=== PATIENT | male | born 1965 | race Caucasian/White ===

== ENCOUNTER 2022-04-29 13:35 | Emergency (ER) | payer OTHER, SELFPAY ==
--- NOTE | ~2022-04-29 | CT_ITS ---
EXAMINATION: CT abdomen pelvis wo con DATE: 04/29/2022 16:14 INDICATION: left flank pain TECHNIQUE: Computed tomography (CT) of the abdomen and pelvis was performed without intravenous contr ast. Automated exposure control and iterative reconstruction technique were employed. The dose-length product was 892.61 mGy-cm. COMPARISON: None. FINDINGS: Lower thorax: Minimal dependent atelectasis. Liver: Normal. Biliary/Gallbladder: Cholelithiasis. No bile duct dilation. Pancreas: No mass or duct dilation. Spleen: Normal. Adrenals:Right adrenal adenoma. Kidneys: Bilateral gynecomastia. Lower lobe 5 mm nonobstructing calculi. Bilateral simple cysts. No h ydronephrosis GI tract: No small or large bowel dilation. Normal appendix. Diverticulosis without diverticulitis. Mesentery/Peritoneum: No ascites, mass, or free air. Retroperitoneum: No mass. Atherosclerotic abdominal aortic and/or arterial calcifications. Pelvis: Pelvic organs are within normal limits. Soft Tissues: Soft tissues and body wall unremarkable. Uncomplicated fat-containing bilateral inguina l hernias. Bones: No acute osseous finding. IMPRESSION: No acute abdominopelvic process detected. Reviewed, dictated and finalized at location K.
[2022-04-29 13:39] VITALS: BP 151/98; PULSE 104; RESP 16; TEMP 36.6; O2SAT 99
--- NOTE | 2022-04-29 13:58 | ED.BACK ---
HPI - Back Pain/Injury General Chief Complaint: Back Pain/Injury Stated Complaint: back pain Time Seen by Provider: 04/29/22 13:41 Source: patient and RN notes reviewed Mode of arrival: ambulatory Limitations: no limitations History of Present Illness HPI Narrative: This is a 56 year old male who presents for evaluation of left flank pain. He states this pain has been present for several month. It worsened 2 months ago so he has been getting treatment from a chiropractor. He reports having xrays performed, and he was told he had curved spine and pinched nerve. He is not taking any medication for his pain. This morning he woke up with more severe pain. He states sometimes pain is located mid low back and other times it is located on his left flank. This morning he tried ice with out relief. His pain is worse with movement and bending. He denies pain radiating to his abdomen and down his legs. He denies leg weakness, numbness, or saddle anesthesia. Pain is severe now. Related Data Allergies Allergy/AdvReac Type Severity Reaction Status Date / Time No Known Allergies Allergy Verified 04/29/22 14:00 Review of Systems Review of Systems: All systems reviewed & are unremarkable except as noted in HPI and below Constitutional: Constitutional: Denies chills, Denies fatigue and Denies fever(s) Cardiovascular: Cardiovascular: Denies chest pain Respiratory: Respiratory: Denies chest congestion Gastrointestinal: Gastrointestinal: Denies abdominal pain and Denies bloating Genitourinary: Genitourinary: Denies hematuria, Denies oliguria and Denies testicular pain Musculoskeletal: Musculoskeletal: Reports back pain PMFSH Past Medical History Medical History Hyperlipidemia Seizure disorder Surgical History Surgical History (Updated 04/29/22 @ 13:58 by Macey Lopez MD) History of ankle surgery Social History Social History (Updated 04/29/22 @ 21:44 by Mcaey Lopez MD) Smoking status: Never smoker Exam Const: General: alert Nutritional Appearance: well nourished Orientation/consciousness: patient oriented x3 Other: patient appears to be in severe pain HENMT: Head: normal to inspection Throat: posterior oropharynx normal Eyes: EOM: EOMs intact bilaterally Resp: Effort & Inspection: normal respiratory effort Auscultation: clear to auscultation bilaterally Cardio: Rate: regular rate Rhythm: regular rhythm Heart sounds: no murmurs GI: GI Palp: Yes Soft to palpation, No Tenderness to palpation present (GI), No Guarding due to palpation present (GI) and No Rigid due to palpation Auscultation: normal bowel sounds Back/Spine/Pelvis: Back: CVA tenderness Skin: General skin exam: normal color Rashes: no rashes Wounds: no wounds Neuro: General: patient oriented x3, moves all extremities and CN's II-XI intact bilaterally Cranial nerves: Yes Nystagmus not present Psych: Mental Status: mental status grossly normal Affect: normal affect Attitude: cooperative Course Reevaluation(s) Reevaluation #1: Patient's pain has improved. I have discussed pain management and discharge plan. he will call PCP for further evaluation Date: 04/29/22 Time: 16:45 Vital Signs Vital signs: Vital Signs Temperature 97.8 F 04/29/22 13:39 Pulse Rate 104 H 04/29/22 13:39 Respiratory Rate 16 04/29/22 13:39 Blood Pressure 151/98 H 04/29/22 13:39 Pulse Oximetry 99 04/29/22 13:39 Oxygen Delivery Room Air 04/29/22 13:39 Temperature 97.8 F 04/29/22 13:39 Pulse Rate 104 H 04/29/22 13:39 Respiratory Rate 16 04/29/22 13:39 Blood Pressure 151/98 H 04/29/22 13:39 Pulse Oximetry 99 04/29/22 13:39 Oxygen Delivery Room Air 04/29/22 13:39 MDM - Back Pain/Injury Lab Data Attestation: I reviewed the patient's lab results. Result diagrams: 04/29/22 14:11 04/29/22 14:11 Labs: Lab Results
[2022-04-29] MEDS: diazePAM (*CRX) 5 MG TABLET PO (14:10)
[2022-04-29] MEDS: KETOROLAC 30 MG/ML VIAL (*BKC) IV PUSH (14:11)
[2022-04-29 14:16] LABS: Basophils Percent Auto 0.7 % (0.2-1.2); Eosinophils Absolute Auto 0.1 K/mm3 (0-0.3); Eosinophils Percent Auto 2.4 % (0-4.4); Immature Granulocyte Absolute 0.01 K/mm3 (0.00-0.031); Immature Granulocyte Percent A 0.2 % (0-0.5); Lymphocytes Absolute Auto 1.03 K/mm3 (0.9-3.2); Lymphocytes Percent Auto 19.1 % (18.3-44.2); Mean Corpuscular Hemoglobin 31.5 pg (26-34); Mean Corpuscular Volume 92.5 fl (80-100); Mean Platelet Volume 9.2 fl (7.4-10.4); Monocytes Absolute Auto 0.5 K/mm3 (0.1-0.6); Monocytes Percent Auto 8.5 % (2.6-8.5); Neutrophils Absolute Auto 3.7 K/mm3 (1.3-6.7); Neutrophils Percent Auto 69.1 % (45.5-73.1); Platelet Count Result 184 k/mm3 (150-375); Red Blood Count 5.08 M/mm3 (4.6-6.20); White Blood Count 5.4 K/mm3 (4.5-10.0)
[2022-04-29 14:27] LABS: Alanine Aminotransferase 28 U/L (6-50); Alkaline Phosphatase 48 U/L (38-126); Anion Gap 13 mmol/L (8-16); Aspartate Amino Transferase 29 U/L (17-59); Bilirubin,Total 0.5 mg/dL (0.2-1.3); Blood Urea Nitrogen 22 mg/dL (9-20); Calcium 9.2 mg/dL (8.4-10.2); Carbon Dioxide 23 mmol/L (22-30); Chloride 104 mmol/L (98-107); Estimated CRCL calculation 93 ml/min; Estimated Glomerular Filt Rate > 60; Glucose 105 mg/dL (65-110); Lipase 105 U/L (23-300); Potassium 4.3 mmol/L (3.4-5.0); Sodium 140 mmol/L (137-145)
[2022-04-29 15:00] LABS: Add Urine Microscopic? NO; Appearance Urine Clear (Clear); Bilirubin Urine Negative (Negative); Blood Urine Negative (Negative); Color Urine Yellow (Yellow); Glucose Urine UA Negative (Negative); Ketones Urine Negative (Negative); Leukocyte Esterase Ur Negative LEU/UL (Negative); Nitrate Urine Negative (Negative); Protein Urine Negative (Negative); Urobilinogen Urine Negative mg/dL (<2.0)
[2022-04-29 15:01] LABS: Specific Grav Ur 1.034 (1.001-1.035)
== END 2022-04-29 17:08 | disposition home or self-care (01) ==
PROVIDERS: Emergency Provider General Practice
DX: M54.50 Low back pain, unspecified (principal); G89.29 Other chronic pain; N20.0 Calculus of kidney; G40.909 Epilepsy, unspecified, not intractable, without status epilepticus; E78.5 Hyperlipidemia, unspecified
CPT/HCPCS: 36415; 74176; 80053; 81003; 83690; 85025; 96374; 99284; A9270; J1885